=== PATIENT | male | born 1965 | race Caucasian/White ===

== ENCOUNTER → 2017-02-27 12:32 | Outpatient (CLI) | payer BC | END | disposition home or self-care (01) | LOC: D.RAD 08:30 → D.MRI 10:00 → D.RAD 12:32 | DX: S43.491A Other sprain of right shoulder joint, initial encounter (principal) ==

== ENCOUNTER 2017-03-15 05:49 | Day surgery (SDC) | payer BC ==
[2017-03-14 09:48] LABS: HEMATOCRIT 40.3 % (42.0-54.0); MCHC 34.7 g/dL (31.0-37.0); MCV 97.8 fL (80.0-100.0); MEAN PLATELET VOLUME 10.1 fL (7.4-10.4); RBC 4.12 10x6/uL (4.20-6.10); RDW 12.3 % (11.5-14.5); WBC 8.4 10x3/uL (4.8-10.8)
[~2017-03-15] VITALS: Ht 175.3 cm; Wt 74.8 kg
[2017-03-15 07:42] VITALS: BP 183/95; Ht 175.3 cm; Wt 74.8 kg
[2017-03-15] MEDS ORDERED: NORVASC5 MG PO (07:47)
[2017-03-15] MEDS ORDERED: PERCOCET 10/3251 TA1 PO (11:46)
[2017-03-15] MEDS ORDERED: TORADOL10 MG PO (11:46)
[2017-03-15] MEDS ORDERED: DURICEF500 MG PO (11:46)
--- NOTE | 2017-03-15 13:55 | NUR ---
DC TEACHING COMPLETE SCRIPTS GIVEN TO . DC PIV W/CATHETER TIP INTACT.
--- NOTE | 2017-03-15 14:11 | NUR ---
DC HOSP VIA WC BY VOLUNTEER DRIVING. DENIES ANY NEEDS.
--- NOTE | 2017-03-15 14:22 | OP ---
PATIENT NAME: JEFFRY LYONS MEDICAL RECORD: [id number] :69 LOCATION:[facility] ADMISSION DATE: SURGEON: ABRAHAN HICKS DO DATE OF OPERATION: 03/15/2017 SURGEON: Abrahan Hicks DO. DIVISION DIRECTOR: Lena Stewart, Advanced Nurse Practitioner. SURGERY PERFORMED: Right shoulder arthroscopy with rotator cuff repair, mini open subscapularis and biceps tenodesis. PREOPERATIVE DIAGNOSIS: Right shoulder subscapularis tear. POSTOPERATIVE DIAGNOSES: Right shoulder subscapularis tear and superior labrum anterior and posterior tear. INDICATIONS: Mr. 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 Once that happened, he came to see me in the office. He was examined and MRI arthrogram was done. This was done and this showed a subscapularis tear and full thickness and he wished to have it fixed due to his activity. Operative risks and benefits were discussed with him as well as conservative means and he chose to have it repaired and was consented for the surgery. DESCRIPTION OF PROCEDURE: The patient was taken to the preoperative area where he was given a block by anesthesia and then taken to the operative suite, placed in the left lateral decubitus position. All bony prominences were padded and beanbag was placed around them. Beanbag was then placed on suction and hardened to hold him in position. The right arm was prepped and draped with Betadine and clindamycin was given. Preoperative timeout was then performed. Everyone is in agreement with the correct site, side and procedure, as well as the patient. The posterior portal was then established and with an 11-blade scalpel, entered into the shoulder joint after 60 mL of normal saline was injected into the shoulder joint. The subscapularis tear was then seen once entered as well as the SLAP tear. The anterior portal and the superolateral portal were established at that time. The biceps tendon was tagged and tenotomized at the labral junction and then pulled out through the superolateral portal. The subscapularis tendon then had traction sutures placed in it using the nitinol wire and a 90-degree hook, then it went to pass and could not get a good placement on it and we then converted to an open procedure. The intraarticular supraspinatus was intact as well as the infraspinatus and pictures were taken of that. The diagnostic arthroscopy was done. The labrum was probed and seen to be not loose prior to opening. A small incision was then done diagonally in the small deltopectoral interval and subscapularis was dissected down. A self-retaining retractor was placed. The subscapularis tendon was identified and a FiberTape was placed into the subscapularis tendon using a horizontal mattress stitch. This was done on the superior and inferior portions of the subscapularis tendon and then a 4.75 PushLock was then first entered inferiorly in the lesser tuberosity and then superiorly of the humerus. Prior to this, the bed of it was prepared with a rasp. The suture tapes were then cut and repair was seen to be good and it was oversewn with a #2 Ethibond suture securing a good repair. The arm was then externally rotated ensuring the tendon stayed in good position and internally rotated and that there is adequate room in the OPERATIVE REPORT [id number] JEFFRY LYONS shoulder for passage. Attention was then drawn to the bicep tendon. A small incision was made just below the pectoralis major and blunt dissection was made down to the humerus. The bicep tendon was identified and whipstitched, and then a drill was used to punch a unicortical hole in the anterior humerus. The button had been placed on the whipstitch suture and was placed into that unicortical hole. The button then flipped and the bicep tendon was tightened down onto the anterior humerus. Free needle was then taken and a stitch was made through the remaining stump of the bicep tendon and then knots were tied on top of that, securing it to the button and bone. The wounds were then copiously irrigated with normal saline and closed using 2-0 Vicryl on the small mini open incisions anteriorly. The portal holes were closed with a 4-0 Monocryl in inverted interrupted fashion. The skin was then closed with a subcuticular 4-0 Monocryl after the 2-0 and Dermabond was placed over the bicep tenodesis site and Steri-Strips were placed over the other incisions. Adaptic, 4 x 4s and ABDs were placed over and the patient was placed in a shoulder sling with pillow. Awakened in stable condition and taken to recovery. Blood loss was minimal. TRANSINT:[id number] Voice Confirmation ID: [id number] DOCUMENT ID: [id number] ABRAHAN HICKS DO at 1422 CC: [id number] DICTATION DATE: 03/15/17 1158 RAD TECH: 03/15/17 1417 [facility] 03/15/[address] [id number]
== END 2017-03-15 14:11 | disposition home or self-care (01) ==
LOC: D.OPS 05:49 → D.PAN 07:30 → D.OPS 07:30 → D.PAN 08:10 → D.OPS 08:10
PROVIDERS: Anesthesiology
DX: M75.111 Incomplete rotator cuff tear or rupture of right shoulder, not specified as traumatic (principal); M25.511 Pain in right shoulder; I10 Essential (primary) hypertension; Z01.812 Encounter for preprocedural laboratory examination